=== PATIENT | female | born 1960 | race Caucasian/White ===

== ENCOUNTER 2019-10-14 03:38 | Inpatient (IN) | payer OTHER ==
[~2019-10-14] VITALS: Ht 121.9 cm; Wt 65.5 kg
[2019-10-14 04:16] LABS: BASOPHIL % 0.5 % (0-2); PLATELET COUNT 297 x10^3mcL (130-400)
[2019-10-14 04:17] LABS: RED CELL DISTRIBUTION WIDTH 16.8 % (11.5-14.5)
[2019-10-14 04:25] LABS: microscopic required? NO
[2019-10-14] MEDS ORDERED: ARTIFICIAL TEA1 EACH OP ×2 (04:32→04:33)
[2019-10-14] MEDS ORDERED: CETIRIZINE HYDR10 MG GT (04:33)
[2019-10-14] MEDS ORDERED: VITAMIN D32000 I2 PEG (04:34)
[2019-10-14] MEDS ORDERED: COLACE100 MG PEG (04:34)
[2019-10-14] MEDS ORDERED: IBUPROFEN400 MG GT (04:35)
[2019-10-14] MEDS ORDERED: LEVOTHYROXIN0.025 M2 PEG (04:36)
[2019-10-14 04:37] LABS: urine erythrocyte NEGATIVE (NEGATIVE)
[2019-10-14] MEDS ORDERED: LOV40I SQ (04:37)
[2019-10-14] MEDS ORDERED: MIRALAX17 GM/Dose PEG (04:37)
[2019-10-14] MEDS ORDERED: M.V.I. ADULT10 ML PEG (04:38)
[2019-10-14 04:39] LABS: CALCIUM 7.3 mg/dL (8.5-10.1); CARBON DIOXIDE 28.1 mmol/L (21-32); CHLORIDE SERUM 103 mmol/L (98-107); CREATININE SERUM 0.7 mg/dL (0.6-1.0); GFR1 > 60 mL/min; POTASSIUM SERUM 4.2 mmol/L (3.5-5.1); SODIUM SERUM 136 mmol/L (136-145)
[2019-10-14] MEDS ORDERED: VALPROIC A250 MG/51 GT (04:39)
[2019-10-14] MEDS ORDERED: THI100 PEG (04:39)
[2019-10-14 04:43] LABS: ALKALINE PHOSPHATASE 95 U/L (46-116); ALT/SGPT 15 U/L (14-59); AST/SGOT 20 U/L (15-37); BILIRUBIN TOTAL 0.22 mg/dL (0.20-1.00); GLUCOSE SERUM 95 mg/dL (74-106); MAGNESIUM 2.2 mg/dL (1.8-2.4); TOTAL PROTEIN, SERUM 7.3 g/dL (6.4-8.2)
[2019-10-14 04:44] LABS: ALBUMIN 1.5 g/dL (3.4-5.0)
[2019-10-14 07:38] LABS: AMPHETAMINE QUAL UR NONE DETECTED (See below)
[2019-10-14 07:55] VITALS: BP 94/52
[2019-10-14 08:50] VITALS: BP 92/48
[2019-10-14 13:05] VITALS: BP 99/57
[2019-10-14 17:00] VITALS: BP 110/52
[2019-10-14 20:38] VITALS: BP 115/51
[2019-10-15] VITALS (7 sets, daily range): BP systolic 82–133; BP diastolic 42–73
[2019-10-16] VITALS (7 sets, daily range): BP systolic 68–113; BP diastolic 37–67; Ht 121.9 cm; Wt 65.5 kg
[2019-10-16 05:38] LABS: BASOPHIL % 0.5 % (0-2); PLATELET COUNT 301 x10^3mcL (130-400)
[2019-10-16 05:45] LABS: RED CELL DISTRIBUTION WIDTH 17.3 % (11.5-14.5)
[2019-10-16 05:46] LABS: CALCIUM 7.2 mg/dL (8.5-10.1); CARBON DIOXIDE 28.7 mmol/L (21-32); CHLORIDE SERUM 107 mmol/L (98-107); CREATININE SERUM 0.7 mg/dL (0.6-1.0); GFR1 > 60 mL/min; GLUCOSE SERUM 95 mg/dL (74-106); PHOSPHOROUS 3.1 mg/dL (2.5-4.9); POTASSIUM SERUM 3.6 mmol/L (3.5-5.1); SODIUM SERUM 141 mmol/L (136-145)
[2019-10-16 09:37] LABS: FREE T4 0.68 ng/dL (0.76-1.46); T3 TOTAL 0.67 ng/mL
[2019-10-16 09:38] LABS: FREE THYROXINE INDEX 1.7 ug/dL (1.4-4.5); T4(THYROXINE) 4.5 ug/dL (4.7-13.3)
[2019-10-17] VITALS (7 sets, daily range): BP systolic 81–106; BP diastolic 37–67
[2019-10-17 06:53] LABS: BASOPHIL % 0.7 % (0-2); PLATELET COUNT 311 x10^3mcL (130-400)
[2019-10-17 06:59] LABS: RED CELL DISTRIBUTION WIDTH 17.1 % (11.5-14.5)
[2019-10-17 07:26] LABS: CALCIUM 7.4 mg/dL (8.5-10.1); CARBON DIOXIDE 27.8 mmol/L (21-32); CHLORIDE SERUM 107 mmol/L (98-107); CREATININE SERUM 0.6 mg/dL (0.6-1.0); GFR1 > 60 mL/min; GLUCOSE SERUM 114 mg/dL (74-106); POTASSIUM SERUM 3.5 mmol/L (3.5-5.1); SODIUM SERUM 140 mmol/L (136-145)
[2019-10-17] MEDS ORDERED: MIDODRINE HCL10 MG GT (11:05)
[2019-10-17] MEDS ORDERED: AMERINET CHOICE1 PD3 IV (11:06)
[2019-10-18 05:26] VITALS: BP 108/51
[2019-10-18 06:40] LABS: PLATELET COUNT 388 x10^3mcL (130-400)
[2019-10-18 06:51] LABS: BASOPHIL % 2.2 % (0-2); RED CELL DISTRIBUTION WIDTH 16.7 % (11.5-14.5)
[2019-10-18 09:02] VITALS: BP 97/63
[2019-10-18 13:23] VITALS: BP 110/63
[2019-10-18 13:38] LABS: CALCIUM 7.7 mg/dL (8.5-10.1); CARBON DIOXIDE 23.9 mmol/L (21-32); CHLORIDE SERUM 105 mmol/L (98-107); CREATININE SERUM 0.8 mg/dL (0.6-1.0); GFR1 > 60 mL/min; GLUCOSE SERUM 95 mg/dL (74-106); POTASSIUM SERUM 3.8 mmol/L (3.5-5.1); SODIUM SERUM 140 mmol/L (136-145)
[2019-10-18 13:58] VITALS: BP 110/63
[2019-10-18 16:48] VITALS: BP 111/89
== END 2019-10-18 21:04 | DRG 205 ==
LOC: ED 03:38 → DU 05:31 → EDBEDREQ 05:48 → DU 06:05 → IC 10-15 11:27 → DU 10-16 18:48
PROVIDERS: Emergency Medicine; Internal Medicine; ADMIT Internal Medicine
DX: T17.590A Other foreign object in bronchus causing asphyxiation, initial encounter (principal); J69.0 Pneumonitis due to inhalation of food and vomit; J96.21 Acute and chronic respiratory failure with hypoxia; J44.1 Chronic obstructive pulmonary disease with (acute) exacerbation; G93.49 Other encephalopathy; Z68.41 Body mass index [BMI] 40.0-44.9, adult; E83.51 Hypocalcemia; E86.0 Dehydration; E03.9 Hypothyroidism, unspecified; G20 Parkinson's disease; F99 Mental disorder, not otherwise specified; G40.909 Epilepsy, unspecified, not intractable, without status epilepticus; Z93.1 Gastrostomy status
CPT/HCPCS: 36600; 84439; G0378; J0132; J1650; J2543; J3370; J3490; J7030; J7040; J7050; J7620; J7626; Q0092